=== PATIENT | female | born 1985 | race African-American/Black ===

== ENCOUNTER 2020-02-23 12:36 | Emergency (ER) | payer BC, OTHER ==
[~2020-02-23] VITALS: Ht 165.1 cm; Wt 77.1 kg
[2020-02-23 13:44] VITALS: BP 136/80
== END 2020-02-23 13:57 | disposition home or self-care (01) ==
LOC: ER 12:36
DX: U07.1 COVID-19 (principal); J12.89 Other viral pneumonia
CPT/HCPCS: 36415; 71045; 87426